=== PATIENT | female | born 1945 | race Caucasian/White ===

== ENCOUNTER 2018-02-01 13:36 | Emergency (ER) | payer OTHER ==
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
[2018-02-01] MEDS ORDERED: MORPHINE SULFATE INJ 10 MG/ML VIAL IM ONE (14:00)
[2018-02-01] MEDS ORDERED: PROMETHAZINE HCL INJ 25 MG/ML VIAL IM ONE (14:00)
[2018-02-01 14:01] VITALS: TEMP 98.3
[2018-02-01] MEDS ORDERED: MORPHINE SULFATE INJ 10 MG/ML VIAL IV ONE ×2 (14:09→14:36)
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
[2018-02-01 15:14] VITALS: BP 151/92; O2SAT 95
== END 2018-02-01 15:14 | disposition home or self-care (01) ==
LOC: EDSEX 13:36 → ER 13:36
DX: S42.201A Unspecified fracture of upper end of right humerus, initial encounter for closed fracture (principal); K21.9 Gastro-esophageal reflux disease without esophagitis; Z79.899 Other long term (current) drug therapy; V86.65XA Passenger of 3- or 4- wheeled all-terrain vehicle (ATV) injured in nontraffic accident, initial encounter; Z88.2 Allergy status to sulfonamides
CPT/HCPCS: 73030; J2270; J2550